=== PATIENT | male | born 1955 | race Caucasian/White ===

== ENCOUNTER 2016-07-17 00:05 | Inpatient (IN) | payer OTHER ==
[~2016-07-17] VITALS: Ht 170.2 cm; Wt 90.7 kg
[~2016-07-17 00:05] MED LIST: ASPIRIN CHILDRE81 MG PO; COLCHICINE0.6 MG PO; FENOFIBRATE134 MG PO; GOOD SENSE IBU200 MG PO; IBUPROFEN800 MG PO; JANUMET 1000 MG1 TAB PO; JANUVIA 50MG50 MG PO; LANTUS100 U/ML SC; LEVEMIR 10100 UNITS/ SC; LOSARTAN POTAS100 MG PO; MOTRIN 600 MG600 MG PO; NOVOLOG 10300 UNITS/ SC; NOVOLOG MI300 UNITS/ SC; NOVOLOG100 U/ML SC; OMEGA-31000 MG PO; PRILOSEC 20MG C20 MG PO; TRICOR 145 MG145 MG PO
--- NOTE | 2016-07-17 00:16 | NUR ---
JAYMIE GAINES AT BEDSIDE FOR EVAL.
--- NOTE | 2016-07-17 00:16 | NUR ---
PT BIBA TO ROOM 8. PER PT SON PT WAS "BREATHING FUNNY", PT WAS FOUND BY EMS PALE, WEAK, AND DIAPHORETIC. PT SON STATED HE TRIED TO WAKE PT UP BUT SON WAS HAVING TROUBLE WAKING UP PT, PT WOKE UP CONFUSED. PER EMS BG = 220.
--- NOTE | 2016-07-17 00:21 | ED DYSPNEA/ASTHMA COMPLAINT ---
History of Present Illness General Chief Complaint: General Adult Stated Complaint: GENERAL MALIASE Source: patient, family, old records, EMS Exam Limitations: no limitations Vital Signs & Intake/Output Vital Signs & Intake/Output Vital Signs Date Time Temp Pulse Resp B/P Pulse O2 O2 Flow FiO2 Ox Delivery Rate 07/17 0642 94 Room Air 07/17 0514 97.2 74 18 138/77 97 Room Air 07/17 0247 97.4 75 18 144/83 97 Room Air 07/17 0034 Room Air 07/17 003 97.8 76 20 158/90 95 Room Air Allergies Coded Allergies: NO KNOWN ALLERGIES (04/04/12) Reconcile Medications Aspirin (Children's Aspirin) 81 MG CTB 81 MG PO DAILY HEART Atorvastatin Calcium 10 MG TABLET 10 MG PO DAILY CHOLESTEROL (Reported) Canagliflozin (Invokana) 100 MG TABLET 100 MG PO DAILY DIABETES (Reported) Colchicine 0.6 MG TAB 600 MCG PO BID HEART TAKE ONE PILL BY MOUTH TWICE A DAY FOR ONE MONTH, THEN STOP Fenofibrate (Tricor 145 MG) 145 MG TABLET 1 TAB PO DAILY CHOLESTEROL ( Reported) Fenofibrate Nanocrystallized (Fenofibrate) 145 MG TABLET 145 MG PO DAILY CHOLESTEROL (Reported) Ibuprofen (Motrin 600 MG Tab) 600 MG TAB 1 TAB PO TID HEART with food Ibuprofen 200 MG TAB 2 TAB PO TID HEART TAKE TWO TABS THREE TIMES A DAY FOR TWO WEEKS FROM OCTOBER 02 - Ibuprofen 200 MG TAB 1 TAB PO TID HEART Insulin Aspart, Recombinant (Novolog) 100 U/ML FRED 0 UNITS SC TIDAC/HS DIABETES IF FINGERSTICK BEFORE MEALS INJECT SC AT BEDTIME 80-120 7 UNITS 0 121-150 8 UNITS 0 151-200 10 UNITS 0 201-250 12 UNITS 2 UNITS 251-300 14 UNITS 3 UNITS 301-350 16 UNITS 4 UNITS 351-400 18 UNITS 5 UNITS >400 20 UNITS 6 UNITS >[address] CÁRDENAS Insulin Detemir (Levemir Flextouch) 100 UNIT/ML (3 ML) INSULN.PEN 100 ML SC DAILY DIABETES (Reported) Insulin Detemir (Levemir) 100 UNITS/ML FRED 30 UNITS SC 1700 DIABETES INJECT 30 UNITS SC EVERY NIGHT Linagliptin/Metformin HCl (Jentadueto 2.5 MG-1000 MG Tab) 2.5 MG-1,000 MG TABLET 2.5 MG PO DAILY DIABETES (Reported) Losartan Potassium 100 MG TABLET 1 TAB PO DAILY HYPERTENSION (Reported) Reason to Stop at ADM: HYPOTENSION Losartan Potassium 25 MG TABLET 25 MG PO DAILY HTN (Reported) OMEGA-3 FATTY ACIDS/FISH OIL ([place] 3 1,000 MG Softgel) 300 MG-1,000 MG CAPSULE 1 TAB PO DAILY CHOLESTEROL (Reported) Omeprazole (Prilosec) 20 MG CAP 40 MG PO DAILY AC HEARTBURN TAKE ONE CAPSULE EVERY MORNING HALF HOUR BEFORE BREAKFAST Triage Note: PT BIBA TO ROOM 8. PER PT SON PT WAS "BREATHING FUNNY", PT WAS FOUND BY EMS PALE, WEAK, AND DIAPHORETIC. PT SON STATED HE TRIED TO WAKE PT UP BUT SON WAS HAVING TROUBLE WAKING UP PT, PT WOKE UP CONFUSED. PER EMS BG = 220. Triage Nurses Notes Reviewed? yes Onset: Abrupt Duration: hour(s):, constant, continues in ED Timing: recent history Severity: moderate, severe Activities at Onset: sleep HPI: 61-year-old male brought into the emergency room after respiratory distress while sleeping. Patient was breathing very heavily and struggling to breathe according to the son and was not arousable. Patient does not recall this episode. Patient reports that he feels weak and sweaty and short of breath but denies any chest pain. Previous history of pericardial effusion. Patient sees a electrical repairer out of [place]. Denies any fever cough congestion headache confusion slurring of words. He is currently not on any anticoagulants and denies any other symptoms and symptoms at this time. (CAROLINA HUDSON) Past History Travel History Traveled to [place] past 21 day No Medical History Any Pertinent Medical History? see below for history Cardiovascular: hypertension Endocrine: diabetes Surgical History Surgical History: laminectomy (l4/l5) Psychosocial History Who do you live with Daughter Services at Home None What is your primary language [place] Tobacco Use: Refused to answer Family History Family History, If Any: MOTHER Relation not specified for: FH: myocardial infarction FHx: stroke Hx Contributory? No (CAROLINA HUDSON) Review of Systems Review of Systems Constitutional: Reports: no symptoms. EENTM: Reports: no symptoms. Respiratory: Reports: see HPI. Cardiovascular: Reports: see HPI. GI: Reports: no symptoms. Genitourinary: Reports: no symptoms. Musculoskeletal: Reports: no symptoms. Skin: Reports: no symptoms. Neurological/Psychological: Reports: no symptoms. Hematologic/Endocrine: Reports: no symptoms. Immunologic/Allergic: Reports: no symptoms. All Other Systems: Reviewed and Negative (CAROLINA HUDSON) Physical Exam Physical Exam General Appearance: well developed/nourished, alert, awake, mild distress Head: atraumatic, normal appearance Eyes: Bilateral: normal appearance, EOMI. Ears, Nose, Throat: normal pharynx, normal ENT inspection, hearing grossly normal Neck: normal inspection Respiratory: normal breath sounds, no respiratory distress Cardiovascular: regular rate/rhythm Gastrointestinal: soft Extremities: normal inspection Neurologic/Psych: no motor/sensory deficits, awake, alert, oriented x 3, normal mood/affect, manager trust II-XII nml as tested Skin: diaphoresis Core Measures ACS in differential dx? Yes Severe Sepsis Present: No Septic Shock Present: No (CAROLINA HUDSON) Progress Differential Diagnosis: asthma, AMI, bronchitis, costochondritis, CHF, COPD, musculoskeletal pain, pericarditis, pulmonary embolism, pneumonia, pneumothorax, rib fracture, unstable angina Plan of Care: Orders Procedure Date/time Status Heart Healthy Diet 07/17 B Active TROPONIN LEVEL 07/17 1200 Active EKG 07/17 1200 Active TROPONIN LEVEL 07/17 0600 Active CBC WITHOUT DIFFERENTIAL 07/17 0600 Active BASIC ELECTROLYTES PLUS BUN&CR 07/17 0600 Active EKG 07/17 0600 Active Vital Signs 07/17 0539 Active Teach/Educate 07/17 0539 Active Pain Treatment and Response 07/17 0539 Active Nutritional Intake, Monitor 07/17 0539 Active Isolation 07/17 0539 Active Patient Care Conference 07/17 0539 Active Activity/Ambulation 07/17 0539 Active Change service to 07/17 0525 Active Admit to inpatient 07/17 0511 Active Code Status 07/17 0511 Active Lab Add-on Test 07/17 0506 Active ECHOCARDIOGRAM 07/17 0456 Active TRC EVALUATION (GEN) 07/17 0452 Active Pathway - chart 07/17 0452 Active House Staff 07/17 0452 Active Patient Data 07/17 0452 Active Code Status 07/17 0452 Complete EKG 07/17 0437 Active Patient Data 07/17 0407 Active Intake & Output 07/17 0124 Active URINALYSIS 07/17 0116 Complete D-DIMER 07/17 0030 Complete Telemetry/Residential Sales Rep 07/17 0027 Active TROPONIN LEVEL 03/19 0027 Complete COMPREHENSIVE METABOLIC PANEL 07/17 26 Complete CBC WITHOUT DIFFERENTIAL 07/17 26 Complete B-TYPE NATRIURETIC PEP (BNP) 07/17 26 Complete EKG 07/17 20 Active Lab Add-on Test 07/17 UNK Active VTE Mechanical Prophylaxis 07/17 UNK Active Telemetry/Residential Sales Rep 07/17 UNK Active FingerStick- Glucose 07/17 UNK Active Current Medications Sig/Bibi Start time Last Medication Dose Stop Time Status Admin Atorvastatin Calcium 10 MG 1700 07/17 1700 AC (Lipitor) Insulin Detemir 30 UNITS 1700 07/17 1700 AC (Levemir) Aspirin 81 MG DAILY 07/17 1000 AC (Aspirin) Colchicine 600 MCG BID 07/17 1000 CAN (Colchicine 600MCG Tab) Enoxaparin Sodium 40 MG DAILY 07/17 1000 AC (Lovenox) Fenofibrate 145 MG DAILY 07/17 1000 AC (Tricor) Losartan Potassium 100 MG DAILY 07/17 1000 AC (Cozaar) Insulin Aspart 0 TIDAC 07/17 0800 AC (NovoLOG) Acetaminophen 650 MG Q6P PRN 07/17 0500 AC (Tylenol) Laboratory Tests 07/17/16 0121: Urine Color YEL, Urine Clarity CLEAR, Urine pH 7.0, Ur Specific [place] 1.015, Urine Protein NEG, Urine Ketones NEG, Urine Nitrite NEG, Urine Bilirubin NEG, Urine Urobilinogen 0.2, Ur Leukocyte Esterase NEG, Ur Microscopic EXAM NOT REQUIRED, Urine Hemoglobin NEG, Urine Glucose >=1000 H 07/17/16 0030: Anion Gap 10, Estimated GFR > 60, BUN/Creatinine Ratio 25.6 H, Glucose 179 H, Calcium 9.6, Total Bilirubin 0.7, AST 51, ALT 83 H, Alkaline Phosphatase 87, Troponin I < 0.01, Lnw-Q-Kfkuxqpgavc Pept 75.3, Total Protein 7.0, Albumin 4.2, Globulin 2.8, Albumin/Globulin Ratio 1.5, D-Dimer 434 H, CBC w Diff NO MAN DIFF REQ, RBC 5.08, MCV 86.2, MCH 30.1, RDW 13.4, MPV 8.6, Gran % 43.6, Lymphocytes % 45.9, Monocytes % 8.1, Eosinophils % 2.1, Basophils % 0.3, Absolute Granulocytes 2.9, Absolute Lymphocytes 3.0, Absolute Monocytes 0.5, Absolute Eosinophils 0.1, Absolute Basophils 0, PUBS MCHC 35.0 Diagnostic Imaging: Viewed by Me: Radiology Read. Discussed w/RAD: Radiology Read. Initial ED EKG: normal intervals, normal p-waves, normal sinus rhythm, rate (85) , LBBB, nonspecific ST T wave chg Prior EKG: unchanged Hand-Off Endorsed To: LULÚ COX DO ([facility]) Endorsed Time: 101 Pending: labs, Xray (CAROLINA HUDSON) Departure Departure Disposition: STILL A PATIENT Condition: Stable Clinical Impression Primary Impression: Acute electrocardiogram changes Secondary Impressions: Dyspnea Referrals: DAVID QUINTANA,SUNDAY Pineda (PCP/Family) Departure Forms: Customer Survey General Discharge Information (CAROLINA HUDSON) Departure Comments 07/17/16 7 am I've seen and personally examined the patient and I agree with the PAs evaluation. He is a 61-year-old male who woke up with diaphoresis. He is also short of breath. According to the son he's had similar episodes in the past and the workups have been unremarkable. He does have a history of pericarditis according to the family. His labs were unremarkable. He is essentially asymptomatic now. His EKG shows a new bundle branch block. EKG was reviewed with the on-call electrical repairer Dr. Patel who is in agreement with the plan. The patient will be admitted to the telemetry service for further evaluation. Inpatient echocardiogram and consider CTA to exclude pulmonary embolism. Admission Note Spoke With: MARÍA QUINTANA PhD,RENATA Manda Documentation of Exam: Documentation of any treatments & extenuating circumstances including Concerns Regarding Discharge (functional status, medication knowledge or non-compliance, living conditions, etc.) that warrant an admission rather than observation: [The patient needs admission for serial troponins, telemetry monitoring, cardiology consultation] (LULÚ COX DO) Critical Care Note Critical Care Note Critical Care Time: non-applicable (CAROLINA HUDSON)
--- NOTE | 2016-07-17 00:33 | NUR ---
LABS SENT (1 BLUE,1SST,1GRAY,1LAV)
[2016-07-17 00:48] LABS: ABSOLUTE BASOPHIL COUNT 0 /CUMM (0.0-0.2); ABSOLUTE EOSINOPHIL COUNT 0.1 /CUMM (0.0-0.7); ABSOLUTE GRANULOCYTE CT 2.9 /CUMM (1.4-6.5); ABSOLUTE MONOCYTE COUNT 0.5 /CUMM (0.10-0.60); BASOPHIL % 0.3 % (0.0-2.0); EOSINOPHIL % 2.1 % (0-5); GRANULOCYTE % 43.6 % (42.2-75.2); HEMATOCRIT 43.8 % (42-52); MEAN CORPUSCULAR HGB 30.1 PG (27.0-31.0); MEAN CORPUSCULAR VOLUME 86.2 FL (80.0-94.0); MEAN PLATELET VOLUME 8.6 FL (7.4-10.4); PLATELET COUNT 170 /CUMM (130-400); RBC DISTRIBUTION WIDTH 13.4 % (11.5-14.5); RED BLOOD CELL CT 5.08 /CUMM (4.70-6.10); WHITE BLOOD CELL COUNT 6.6 /CUMM (4.8-10.8)
[2016-07-17] MEDS ORDERED: INVOKANA100 M1 PO (00:56)
[2016-07-17] MEDS ORDERED: LEVEMIR FL100 UNIT/1 SC (00:57)
[2016-07-17] MEDS ORDERED: JENTADUETO 2.51 EAC2 PO (00:57)
[2016-07-17] MEDS ORDERED: ATORVASTATIN CA10 M1 PO (00:57)
[2016-07-17] MEDS ORDERED: LOSARTAN POTASS25 M1 PO (00:58)
[2016-07-17] MEDS ORDERED: FENOFIBRATE145 M1 PO (00:58)
--- NOTE | 2016-07-17 01:24 | NUR ---
URINE TRIO SENT TO LAB
--- NOTE | 2016-07-17 01:31 | RADIOLOGY REPORT ---
EXAMINATION: XR PORTABLE CHEST CLINICAL INFORMATION: Dyspnea. COMPARISON: None. TECHNIQUE: Portable AP view of the chest was obtained. 1:07 AM FINDINGS: Lung volume low. Mild central vascular prominence accentuated by low inspiratory effort. No focal consolidation. No large pleural effusion. IMPRESSION: Low lung volume with mild central vascular prominence accentuated by the low inspiratory effort.
--- NOTE | 2016-07-17 02:27 | NUR ---
PT DAUGHTER LEFT NUMBER [phone] (SUNDAY) TO CALL.
--- NOTE | 2016-07-17 02:31 | NUR ---
PT SON NUMBER [phone]
--- NOTE | 2016-07-17 02:46 | NUR ---
PT NSR ON MONITOR AT 79 HR. 02 SAT 97 ON RA. DENIES COMPLAINTS AT THIS TIME. AWAITING ADMISSION.
--- NOTE | 2016-07-17 03:37 | NUR ---
PT SLEEPING WITH REGULAR RR AT THIS TIME. NSR (HR 69) ON MONITOR. NO ACUTE DISTRESS NOTED. PT CONTINUES TO AWAIT ADMISSION.
--- NOTE | 2016-07-17 04:21 | NUR ---
HOUSE STAFF AT BEDSIDE
--- NOTE | 2016-07-17 04:59 | NUR ---
REPEAT EKG DONE AND SHOWN TO . HOUSE STAFF PAGED TO NOTIFY WELL.
--- NOTE | 2016-07-17 05:10 | History & Physical ---
See Addendum BRIAN QUINTANAVIOLA 07/17/16 0509: General Information and HPI MD Statement: I have seen and personally examined ZULEYMA GONZALEZ and documented this H&P. The patient is a 61 year old M who presented with a patient stated chief complaint of respiratory distress. Source of Information: patient, old records Exam Limitations: language barrier History of Present Illness: Mr. Gonzalez is a pleasant 61 year old [place]ian-speaking gentleman with PMH type 2 diabetes mellitus, HTN, DLD and pericarditis in 2013 who presented to the emergency room with chief complaint of respiratory distress. History is limited secondary to language barrier and family not being present at time of interview. From the history obtained, it is noted that patient was sleeping and his family members noted he suddenly gasped and became short of breath around 1130 this evening. Patient is unaware of these events but family members noted difficulty in awakening the patient during this episode. Patient does endorse this shortness of breath that has since resolved and mentions there was concomitant dizziness and diaphoresis. He reports this shortness of breath was unlike the episode of pericarditis he experienced in 2013. Currently, patient is completely asymptomatic without dizziness, diaphoresis, chest pain, palpitations, shortness of breath, nausea, vomiting or weakness. Social history is negative for illicit drug use. He is an active smoker and occasionally drinks beer. He performs all of his ADLs and IADLs appropriately. He is currently employed. Allergies/Medications Allergies: Coded Allergies: NO KNOWN ALLERGIES (04/04/12) Home Med list Aspirin (Children's Aspirin) 81 MG CTB 81 MG PO DAILY HEART Atorvastatin Calcium 10 MG TABLET 10 MG PO DAILY CHOLESTEROL (Reported) Canagliflozin (Invokana) 100 MG TABLET 100 MG PO DAILY DIABETES (Reported) Colchicine 0.6 MG TAB 600 MCG PO BID HEART TAKE ONE PILL BY MOUTH TWICE A DAY FOR ONE MONTH, THEN STOP Fenofibrate (Tricor 145 MG) 145 MG TABLET 1 TAB PO DAILY CHOLESTEROL ( Reported) Fenofibrate Nanocrystallized (Fenofibrate) 145 MG TABLET 145 MG PO DAILY CHOLESTEROL (Reported) Ibuprofen (Motrin 600 MG Tab) 600 MG TAB 1 TAB PO TID HEART with food Ibuprofen 200 MG TAB 2 TAB PO TID HEART TAKE TWO TABS THREE TIMES A DAY FOR TWO WEEKS FROM OCTOBER 02 - Ibuprofen 200 MG TAB 1 TAB PO TID HEART Insulin Aspart, Recombinant (Novolog) 100 U/ML FRED 0 UNITS SC TIDAC/HS DIABETES IF FINGERSTICK BEFORE MEALS INJECT SC AT BEDTIME 80-120 7 UNITS 0 121-150 8 UNITS 0 151-200 10 UNITS 0 201-250 12 UNITS 2 UNITS 251-300 14 UNITS 3 UNITS 301-350 16 UNITS 4 UNITS 351-400 18 UNITS 5 UNITS >400 20 UNITS 6 UNITS >[address] CÁRDENAS Insulin Detemir (Levemir Flextouch) 100 UNIT/ML (3 ML) INSULN.PEN 100 ML SC DAILY DIABETES (Reported) Insulin Detemir (Levemir) 100 UNITS/ML FRED 30 UNITS SC 1700 DIABETES INJECT 30 UNITS SC EVERY NIGHT Linagliptin/Metformin HCl (Jentadueto 2.5 MG-1000 MG Tab) 2.5 MG-1,000 MG TABLET 2.5 MG PO DAILY DIABETES (Reported) Losartan Potassium 100 MG TABLET 1 TAB PO DAILY HYPERTENSION (Reported) Reason to Stop at ADM: HYPOTENSION Losartan Potassium 25 MG TABLET 25 MG PO DAILY HTN (Reported) OMEGA-3 FATTY ACIDS/FISH OIL ([place] 3 1,000 MG Softgel) 300 MG-1,000 MG CAPSULE 1 TAB PO DAILY CHOLESTEROL (Reported) Omeprazole (Prilosec) 20 MG CAP 40 MG PO DAILY AC HEARTBURN TAKE ONE CAPSULE EVERY MORNING HALF HOUR BEFORE BREAKFAST Compliance With Home Meds: UNKNOWN Past History Travel History Traveled to [place] past 21 day No Medical History Cardiovascular: hypertension, hyperlipidemia, Pericarditis 2013 Endocrine: diabetes Surgical History Surgical History: laminectomy (l4/l5) Past Family/Social History Family History Relations & Conditions if any MOTHER Relation not specified for: FH: myocardial infarction FHx: stroke Psychosocial History Where do you live? Home Who Do You Live With? spouse Services at Home: None Primary Language: [place] Smoking Status: Current Everyday Smoker ETOH Use: occasional use Illicit Drug Use: denies illicit drug use Living Will? no Functional Ability ADLs Independent: dressing, eating, toileting, bathing. Ambulation: independent IADLs Independent: shopping, housework, finances, food prep, telephone, transportation , medication admin. Sexual History Sexually Active Yes Review of Systems Review of Systems Constitutional: Reports: diaphoresis (During the episode of SOB). Denies: chills, fever, malaise. EENTM: Denies: visual changes, hearing changes, nasal congestion, throat pain. Cardiovascular: Denies: chest pain, palpitations, syncope. Respiratory: Reports: short of breath (Since resolved). Denies: cough, sputum production, wheezing. GI: Denies: abdominal pain, nausea, vomiting. Genitourinary: Denies: dysuria, hematuria. Musculoskeletal: Denies: back pain. Skin: Denies: lesions, rash. Neurological/Psychological: Denies: confusion, headache, tingling. Hematologic/Endocrine: Denies: bruising, bleeding. Immunologic/Allergic: Denies: splenectomy. All Other Systems: Reviewed and Negative Exam & Diagnostic Data Last 24 Hrs of Vital Signs/I&O Vital Signs Date Time Temp Pulse Resp B/P Pulse O2 O2 Flow FiO2 Ox Delivery Rate 07/17 0514 97.2 74 18 138/77 97 Room Air 07/17 0247 97.4 75 18 144/83 97 Room Air 07/17 0034 Room Air 07/17 0034 97.8 76 20 158/90 95 Room Air Intake & Output 07/17 0800 07/17 0000 07/16 1600 Intake Total Output Total 1000 Balance -1000 Output, Urine 1000 Patient 200 lb Weight Physical Exam General Appearance Alert, Oriented X3, Cooperative, No Acute Distress Skin No Rashes, No Breakdown, No Significant Lesion HEENT Atraumatic, PERRLA, EOMI, Mucous Membr. moist/pink Neck Supple, No JVD Lymphatic Cervical nl Cardiovascular Regular Rate, Normal S1, Normal S2 Lungs Clear to Auscultation, Normal Air Movement Abdomen Normal Bowel Sounds, Soft, No Tenderness, Obese. Neurological Normal Speech, Strength at 5/5 X4 Ext, Normal Tone Extremities No Clubbing, No Cyanosis, No Edema, No Tenderness/Swelling Last 24 Hrs of Labs/Ryder: Laboratory Tests 07/17/16 0121: Urine Color YEL, Urine Clarity CLEAR, Urine pH 7.0, Ur Specific [place] 1.015, Urine Protein NEG, Urine Ketones NEG, Urine Nitrite NEG, Urine Bilirubin NEG, Urine Urobilinogen 0.2, Ur Leukocyte Esterase NEG, Ur Microscopic EXAM NOT REQUIRED, Urine Hemoglobin NEG, Urine Glucose >=1000 H 07/17/16 0030: Anion Gap 10, Estimated GFR > 60, BUN/Creatinine Ratio 25.6 H, Glucose 179 H, Calcium 9.6, Total Bilirubin 0.7, AST 51, ALT 83 H, Alkaline Phosphatase 87, Troponin I < 0.01, Yzp-D-Llgdvakcngd Pept 75.3, Total Protein 7.0, Albumin 4.2, Globulin 2.8, Albumin/Globulin Ratio 1.5, CBC w Diff NO MAN DIFF REQ, RBC 5.08, MCV 86.2, MCH 30.1, RDW 13.4, MPV 8.6, Gran % 43.6, Lymphocytes % 45.9, Monocytes % 8.1, Eosinophils % 2.1, Basophils % 0.3, Absolute Granulocytes 2.9, Absolute Lymphocytes 3.0, Absolute Monocytes 0.5, Absolute Eosinophils 0.1, Absolute Basophils 0, PUBS MCHC 35.0 Diagnostic Data EKG Results EKG changes noted, initially thought to be secondary to lead misplacement. CXR Results IMPRESSION: Low lung volume with mild central vascular prominence accentuated by the low inspiratory effort. Assessment/Plan Assessment: Mr. Gonzalez is a pleasant 61 year old [place]ian-speaking male with PMH HTN, DLD and type 2 diabetes mellitus who presents to the [facility] ED with chief complaint of dyspnea. Patient was sleeping earlier this evening and experienced sudden onset acute dyspnea. The dyspnea resolved quickly and was associated with dizziness and diaphoresis. There was no reported chest pain, palpitations, syncope or other concerning symptoms. In the ED: Vital signs showed T T 97.4, HR 75, RR 18, BP 144/83 and O2 saturation of 97% on room air. CBC drawn was unremarkable. BEP showed Na 134, K 3.9, Cl 97, BUN 23, cre 0.9, Glu 179, ALT 83, trop <0.01 and proBNP 75.3. UA showed urine glucose >1000. EKG done in the ED was changed from prior and repeat EKG showed similar findings (Dr. Patel aware). CXR showed low lung volume with mild central vascular prominence accentuated by the low inspiratory effort. Patient is admitted to the telemetry floor and the following is the management: 1. Acute onset shortness of breath * Unknown etiology, differential includes but not limited to CHF vs. NC vs. arrythmia vs. PE * Continuous telemetry monitoring for arrythmia * ProBNP WNL, DDimer Pending, troponin <0.01 * CXR shows no identifiable cause of shortness of breath, no PNA, no effusion * Trend troponin/EKG at 6 am, 12 pm * Echocardiogram ordered, f/u results * Follow up cardio recommendations 2. HTN, HLD * Atorvastatin 10 mg PO daily, fenofibrate 145 mg PO daily * ASA 81 mg PO daily * Losartan 100 mg PO daily 3. Diabetes mellitus * Accuchecks TIDAC * Novolog sliding scale with 30 U SC levemir at bedtime FULL CODE DVTP: SC Lovenox Heart healthy diet Briana pain pathway As Ranked By This Provider Problem List: 1. Dyspnea 2. Acute electrocardiogram changes 3. Hyperlipidemia 4. HTN (hypertension) 5. Diabetes mellitus 6. DVT prophylaxis 7. Full code status Core Measures/Miscellaneous Acute Coronary Syndrome ACS Diagnosis: No Cerebrovascular Accident CVA/TIA Diagnosis: No Congestive Heart Failure CHF Diagnosis: No Venous Thromboembolism VTE Risk Factors: Acute medical illness, Age > 40, Obesity, Smoking No [facility] VTE prophylaxis d/t: No contraindications No VTE Pharm Prophylaxis d/t: No contraindications VTE Diagnosis: No VTE Type: NONE VTE Confirmed by (Test): NONE Severe Sepsis Severe Sepsis Present: No Septic Shock Septic Shock Present: No Miscellaneous Documentation Attending Case Discussed With: JAYE MORALEZ [facility] Primary Care Physician: DAVID QUINTANASUNDAY Patient sees these Specialists Cardiology, Dr. Carlos Nixon Level of Patient Care: [facility]604: Resident Review Statement Resident Statement: examined this patient, discussed with spring internship, agreed with spring internship Other Findings: 61 y/o M with PMH of DM, HTN, HLD and Pericarditis in who presents to the ED with complaints of shortness of breath which woke him up from sleep. Patient is [place] speaking and is not able to give a complete history. Family was not present in the room at the time. He reports feeling weak and sweaty also. He denies any chest pain or palpitations at the time. Currently, the patient feels well, with no shortness of breath, chest pain or chest pressure. He was admitted to this hospital in for Pericarditis and states that his current symptoms are not similar to that episode. He denies any other symptoms. Vitals: Stable EKG: Initial EKG changes were thought to be 2/2 lead misplacement. Repeat EKG shows similar changes. Labs: WNL. Trops <0.01 Problem List: 1) Sudden onset shortness of breath 2/2 possible CHF vs PE vs Possbile Arrhythmia 2) EKG changes, initially thought to be 2/2 lead misplacement, repeat EKG shows similar changes 3) Hypertension 4) Hyperlipidemia 5) Diabetes Plan: - Admit to Telemetry to monitor for arrhythmias. - Trops X3 with EKG - ECHO, Add on ProBNP - No current chest pain, so will hold off on NTG - Fingersticks, Novolog sliding scale and Levemir for DM - Continue other home medications. - DVT PPx: SubQ Lovenox - Pain Pathway: Tylenol PRN - Code Status: Full Code
--- NOTE | 2016-07-17 05:15 | NUR ---
PT MEDICATED WITH ASPIRIN PER EMAR. DENIES ANY CHEST PAIN OR SOB AT THIS TIME. VSS.
--- NOTE | 2016-07-17 05:46 | NUR ---
REPORT GIVEN TO DARWIN ABBASI
--- NOTE | 2016-07-17 07:04 | NUR ---
PT ARRIVED TO FLOOR AT 0610 VIA STRETCHER WITH RN AND MST. PT PLACED ON TELE MONITOR, BP 136/76 HR 72 94% RA 98.2. PT IS A/O X3, PRIMARILY SLOV[place] SPEAKING, NO FAMILY AT BEDSIDE. ORIENTED TO ROOM, CALL SERVIN IN PLACE, BED IN LOWEST POSITION, SIDE RAILS UP. PT HAD NO C/O PAIN, SOB OR DISCOMFORT. PER ER FAMILY WILL BE IN TODAY. WILL CONTINUE TO MONITOR.
[2016-07-17 08:42] VITALS: BP 119/73
[2016-07-17] MEDS ORDERED: LEXAPRO10 M1 PO (10:03)
--- NOTE | 2016-07-17 10:40 | CT SCAN REPORT ---
EXAMINATION: CT ANGIOGRAM OF THE CHEST WITH AND WITHOUT CONTRAST (CT PULMONARY ANGIOGRAM FOR PE) CLINICAL INFORMATION: Reason for Study:
Signs Symptoms: SOB
: ABNORMAL EKG
Presumptive Dx: R/O PULMONARY EMBOLISM
COMPARISON: None TECHNIQUE: Prior to contrast administration, noncontrast localization images were obtained. Subsequently, multidetector volumetric imaging was performed from the thoracic inlet to below the diaphragms following the administration of 80 mL Omnipaque 350 intravenous contrast. No contrast reaction reported Sagittal, coronal, and MIP oblique sagittal reformatted images were obtained on the CT workstation, uploaded to PACS, and reviewed. Total exam dose-length product 496 mGy-cm FINDINGS: QUALITY OF STUDY/CONTRAST BOLUS: Slightly limited especially of the subsegmental pulmonary artery branches PULMONARY ARTERIES: No central or segmental pulmonary emboli. THORACIC AORTA: Remains mildly ectatic with the ascending aorta measuring up to approximately 4.4 cm. No focal aneurysm. LUNG: No focal consolidation, nodules or masses. PLEURA: No pleural effusion or pneumothorax. MEDIASTINUM: Heart size remains moderately enlarged. Ectasia of the thoracic vasculature. No pericardial effusion. No hilar or mediastinal lymphadenopathy. No evidence of septal bowing or right heart strain Mild enlargement of the right lobe of the thyroid gland without significant mass effect. No discrete lesion demonstrated. CHEST WALL/AXILLA: No axillary or internal mammary lymphadenopathy. OSSEOUS STRUCTURES: Stable minor anterior wedge fractures of mid dorsal vertebral body similar to baseline. UPPER ABDOMEN: Nonspecific hepatosplenomegaly partially imaged. Changes of diffuse hepatic steatosis. No reflux of contrast into the hepatic veins to suggest elevated right heart pressures. IMPRESSION: No evidence for any acute or chronic pulmonary embolism. Stable ectasia of the ascending aorta and cardiomegaly. Nonspecific hepatosplenomegaly. Limited assessment of the subsegmental pulmonary arteries as above. VTE: negative
[2016-07-17 12:24] LABS: ABSOLUTE BASOPHIL COUNT 0 /CUMM (0.0-0.2); ABSOLUTE EOSINOPHIL COUNT 0.1 /CUMM (0.0-0.7); ABSOLUTE GRANULOCYTE CT 4.2 /CUMM (1.4-6.5); ABSOLUTE LYMPH COUNT 1.9 /CUMM (1.2-3.4); ABSOLUTE MONOCYTE COUNT 0.6 /CUMM (0.10-0.60); BASOPHIL % 0.2 % (0.0-2.0); EOSINOPHIL % 1.9 % (0-5); GRANULOCYTE % 61.6 % (42.2-75.2); HEMATOCRIT 44.3 % (42-52); MEAN CORPUSCULAR HGB 29.9 PG (27.0-31.0); MEAN CORPUSCULAR HGB CONC 34.5 G/DL (33.0-37.0); MEAN CORPUSCULAR VOLUME 86.7 FL (80.0-94.0); MEAN PLATELET VOLUME 8.5 FL (7.4-10.4); PLATELET COUNT 175 /CUMM (130-400); RBC DISTRIBUTION WIDTH 13.7 % (11.5-14.5); RED BLOOD CELL CT 5.11 /CUMM (4.70-6.10); WHITE BLOOD CELL COUNT 6.8 /CUMM (4.8-10.8)
--- NOTE | 2016-07-17 15:34 | Cons- Cardiology ---
General Information and HPI Consulting Request Date of Consult: 07/17/16 Requested By: MARÍA QUINTANA PhD,RENATA Holman History of Present Illness: This patient is a 61 year old male with history of hypertension, dyslipidemia and diabetes. He also carries a history of pericarditis in 2013. At approximately 11:30 last evening this patient became diaphoretic and short of breath. According to family members the patient was observed to gasp while sleeping and they had trouble awakening the patient. He also felt dizzy without any palpitations. No complaints of chest pain. No fever, chills, nausea, vomiting or orthopnea. In the ER this patient was noted to have a new RBBB in addition to a previously observed LAFB and he had abnormal R wave progression due to a lead misplacement error. The patient also demonstrated a mildly elevated D-dimer but denies any leg discomfort or swelling and he underwent a CT angiogram that was negative for a PE. Allergies/Medications Allergies: Coded Allergies: NO KNOWN ALLERGIES (04/04/12) Home Med List: Aspirin (Children's Aspirin) 81 MG CTB 81 MG PO DAILY HEART Atorvastatin Calcium 10 MG TABLET 10 MG PO DAILY CHOLESTEROL (Reported) Canagliflozin (Invokana) 100 MG TABLET 100 MG PO DAILY DIABETES (Reported) Colchicine 0.6 MG TAB 600 MCG PO BID HEART TAKE ONE PILL BY MOUTH TWICE A DAY FOR ONE MONTH, THEN STOP Escitalopram Oxalate (Lexapro) 10 MG TABLET 10 MG PO D DEPRESSION (Reported) Fenofibrate (Tricor 145 MG) 145 MG TABLET 1 TAB PO DAILY CHOLESTEROL ( Reported) Fenofibrate Nanocrystallized (Fenofibrate) 145 MG TABLET 145 MG PO DAILY CHOLESTEROL (Reported) Ibuprofen (Motrin 600 MG Tab) 600 MG TAB 1 TAB PO TID HEART with food Ibuprofen 200 MG TAB 2 TAB PO TID HEART TAKE TWO TABS THREE TIMES A DAY FOR TWO WEEKS FROM OCTOBER 02 - Ibuprofen 200 MG TAB 1 TAB PO TID HEART Insulin Aspart, Recombinant (Novolog) 100 U/ML FRED 0 UNITS SC TIDAC/HS DIABETES IF FINGERSTICK BEFORE MEALS INJECT SC AT BEDTIME 80-120 7 UNITS 0 121-150 8 UNITS 0 151-200 10 UNITS 0 201-250 12 UNITS 2 UNITS 251-300 14 UNITS 3 UNITS 301-350 16 UNITS 4 UNITS 351-400 18 UNITS 5 UNITS >400 20 UNITS 6 UNITS >[address] CÁRDENAS Insulin Detemir (Levemir Flextouch) 100 UNIT/ML (3 ML) INSULN.PEN 100 ML SC DAILY DIABETES (Reported) Insulin Detemir (Levemir) 100 UNITS/ML FRED 30 UNITS SC 1700 DIABETES INJECT 30 UNITS SC EVERY NIGHT Linagliptin/Metformin HCl (Jentadueto 2.5 MG-1000 MG Tab) 2.5 MG-1,000 MG TABLET 2.5 MG PO DAILY DIABETES (Reported) Losartan Potassium 100 MG TABLET 1 TAB PO DAILY HYPERTENSION (Reported) Reason to Stop at ADM: HYPOTENSION Losartan Potassium 25 MG TABLET 25 MG PO DAILY HTN (Reported) OMEGA-3 FATTY ACIDS/FISH OIL (Radiant 3 1,000 MG Softgel) 300 MG-1,000 MG CAPSULE 1 TAB PO DAILY CHOLESTEROL (Reported) Omeprazole (Prilosec) 20 MG CAP 40 MG PO DAILY AC HEARTBURN TAKE ONE CAPSULE EVERY MORNING HALF HOUR BEFORE BREAKFAST Review of Systems Review of Systems: A twelve point review of systems is unremarkable. Past History Travel History Traveled to [place] past 21 day No Medical History Cardiovascular: hypertension, hyperlipidemia, Pericarditis 2014 Endocrine: diabetes Surgical History Surgical History: laminectomy (l4/l5) Family History Relations & Conditions If Any: MOTHER Relation not specified for: FH: myocardial infarction FHx: stroke Psychosocial History Where Do You Live? Home Who Do You Live With? spouse Services at Home: None Primary Language: Jamaican Smoking Status: Former Smoker (quit 1 1/2 years ago) ETOH Use: occasional use Illicit Drug Use: denies illicit drug use Living Will? no Functional Ability ADLs Independent: dressing, eating, toileting, bathing. Ambulation: independent IADLs Independent: shopping, housework, finances, food prep, telephone, transportation , medication admin. Exam & Diagnostic Data Vital Signs and I&O Vital Signs Date Time Temp Pulse Resp B/P Pulse O2 O2 Flow FiO2 Ox Delivery Rate 07/17 1343 Room Air Room Air 07/17 0930 76 138/80 07/17 0842 97.7 74 16 119/73 93 Room Air 07/17 0800 95 Room Air Room Air 07/17 0642 94 Room Air 07/17 0514 97.2 74 18 138/77 97 Room Air 07/17 0247 97.4 75 18 144/83 97 Room Air 07/17 0034 Room Air 07/17 0034 97.8 76 20 158/90 95 Room Air Intake & Output 07/17 1600 07/17 0800 07/17 0000 07/16 1600 07/16 0800 07/16 0000 Intake Total 480 Output Total 1000 Balance 480 -1000 Intake, Oral 480 Output, Urine 1000 Patient 200 lb Weight Physical Exam: General: WD/ obese male in NAD; alert and oriented x 3 HEENT: NC/AT, PERRL, EOMI, clear oropharnx with mmm Neck: no JVD, no carotid bruit Heart: RRR without murmur or rub Lungs: clear bilaterally Abdomen: soft, obese, NT, +ve bowel sounds Extremities: no edema Diagnostic Data EKG Results sinus rhythm with LAFB and RBBB Assessment/Plan Assessment/Plan * This patient had an episode of what sounds like severe apnea with shortness of breath and decreased responsiveness in the setting of decreased respiration. Although he does have a slightly increased D-dimer I there is no other evidence to support a PE. His new RBBB is indicative of increased RV strain that is likely multifactorial and due to some degree of COPD from year of smoking and also to hypoxia from EBENEZER. There is no current evidence of an exacerbation of COPD or decompensated CHF at this time. We will obtain a pulmonary consult and will plan on an outpatient sleep study. Begin CPAP tonight. Obtain an echocardiogram to assess RV size, function and pressures. We will pursue a stress test as an outpatient due to his risk factors although this is not his active problem. Avoid all sedating medications. * There is no evidence to support active pericarditis. Stop colchicine and ibuprofen. Consult Acknowledgment - Thank you for your consult request.
[2016-07-17 16:28] VITALS: BP 112/70
[2016-07-18 00:32] VITALS: BP 126/80
--- NOTE | 2016-07-18 07:55 | PN- Housestaff ---
Subjective Follow-up For: Difficulty in breathing, probably secondary to sleep apnea New onset right bundle branch block Type 2 diabetes Complaints: patient is a czech speaking male, was c/o mild discomfort in chest Tele-Events Since Last Visit: Normal sinus rhythm, heart rate between 60-74, KS interval 0.22 Subjective: Patient is seen and examined at the bedside. Most of the discussion was done. She was complaining of difficulty breathing and episodes of nodding down. Review of Systems Constitutional: Reports: weakness. Denies: no symptoms. Cardiovascular: Reports: chest pain. Denies: edema, orthopena, palpitations, peripheral edema. Respiratory: Denies: cough, hemoptysis, orthopnea, short of breath, sputum production, stridor. Gastrointestinal: Denies: abdominal pain, bloating, constipation, diarrhea. Genitourinary: Denies: no symptoms. Musculoskeletal: Denies: no symptoms. Skin: Denies: no symptoms. Neurological/Psychological: Denies: no symptoms. Objective Last 24 Hrs of Vital Signs/I&O Vital Signs Date Time Temp Pulse Resp B/P Pulse O2 O2 Flow FiO2 Ox Delivery Rate 07/18 1505 97.9 95 124/76 97 Room Air 07/18 1007 122/76 07/18 0822 97.2 71 20 122/76 93 Room Air 07/18 0550 81 94 07/18 0329 64 93 07/18 0038 75 93 07/18 0032 98.1 80 20 126/80 94 Room Air 07/17 2220 80 93 07/17 2207 95 Room Air Intake & Output 07/18 1600 07/18 0800 07/18 0000 Intake Total 400 720 Output Total 600 Balance -200 720 Intake, Oral 400 720 Output, Urine 600 Physical Exam General Appearance: Alert, Oriented X3, Cooperative, No Acute Distress Cardiovascular: Regular Rate, Normal S1, Normal S2 Lungs: Clear to Auscultation, Normal Air Movement Abdomen: Soft, No Tenderness Neurological: Normal Gait, Normal Speech, Strength at 5/5 X4 Ext Extremities: No Clubbing, No Cyanosis, No Edema Vascular: Normal Pulses Other Physical Findings: Obese Current Medications: Current Medications Sig/Bibi Start time Last Medication Dose Route Stop Time Status Admin Acetaminophen 650 MG Q6P PRN 07/17 0500 AC PO Aspirin 81 MG DAILY 07/17 1000 AC 07/18 PO 1007 Atorvastatin Calcium 10 MG 1700 07/17 1700 AC 07/17 PO 1714 Enoxaparin Sodium 40 MG DAILY 07/17 1000 AC 07/18 SC 1008 Fenofibrate 145 MG DAILY 07/17 1000 AC 07/18 PO 1008 Insulin Aspart 0 TIDAC 07/17 0800 AC 07/18 SC 1302 Insulin Detemir 30 UNITS 1700 07/17 1700 AC 07/17 SC 1713 Losartan Potassium 100 MG DAILY 07/17 1000 AC 07/18 PO 1007 Assessment/Plan Assessment: Patient is a 61-year-old French-speaking gentleman with PMH type 2 diabetes mellitus, hypertension, dyslipidemia, history of pericarditis (2013), presented with chief complaints of dizziness, shortness of breath along with diaphoresis and gasping while sleeping. Vital signs at the time of admission -temperature 97.8, pulse 76, respiratory rate 20, blood pressure 158/90, SPO2 95% on room air EKG at the time of admission showed new RBBB along with LAFB and abnormal R-wave progression. Shortness of breath, probably secondary to sleep apnea- On evaluation. D-dimer was mildly elevated, but CT angiogram was negative for PE , which ruled out pulmonary embolization. Serial troponins and EKG shows no any new changes. Echocardiogram was done which shows normal LVEF >60%. Because of right bundle branch block. He has increased right ventricle strain which can be due to COPD and history of chronic smoking leading to hypoxia and obstructive sleep apnea. We discussed with Daughter she told that patient is having episodes of snoring, obtundation and stopped breathing sometimes in the day. He was previously diagnosed with sleep apnea but never used CPAP.He was already being evaluated for arrhythmia by one month of event monitor, and study was normal. We started patient on CPAP. He felt a little bit improvement when CPAP.We discharged with advise to have sleep study as an outpatient.We continued all home medication as before. Problem List: 1. Dyspnea 2. Acute electrocardiogram changes 3. Hyperlipidemia 4. HTN (hypertension) 5. Diabetes mellitus Pain Ratin Pain Location: Chest pain Pain Goal: Remain pain free Pain Plan: Mild, avoid NSAIDs Tomorrow's Labs & Rationales: none DVT/Prophylaxis: mechanical, pharmacological
--- NOTE | 2016-07-18 07:55 | ECHOCARDIOGRAM REPORT ---
ZULEYMA GONZALEZ Age: 61 : 1955 Gender: M Exam Date: 07/17/2016 08:22 Exam Location: [place] Ht (in): 67 Wt (lb): 200 BSA: 2.10 BP: 138 / 77 Ordering Physician: TERRY SALINAS MD Referring Physician: Jefry Patel MD, PhD Technologist: Richa Sharma [facility] Room Number: [id number] Indications: SHORTNESS OF BREATH Rhythm: Sinus Technical Quality: good FINDINGS Left Ventricle Normal left ventricular size with mild left ventricular hypertrophy. Normal systolic function with no obvious regional wall motion abnormalities. Diastolic filling pattern is consistent with impaired LV relaxatin. The ejection fraction is visually estimated at 60%. Right Ventricle The right ventricle is top normal in size with normal function. Right Atrium The right atrium is normal in size. Left Atrium The left atrium is normal in size. The interatrial septum is intact. Mitral Valve The mitral valve is normal in structure and function. There is mild mitral regurgitation. Aortic Valve Structurally normal aortic valve without significant sclerosis or stenosis. There is mild aortic regurgitation. Tricuspid Valve The tricuspid valve is normal in structure and function. There is mild tricuspid regurgitation. Pulmonary artery systolic pressure is normal. Pulmonic Valve Structurally normal pulmonic valve. There is trace pulmonic regurgitation. Pericardium Normal pericardium without effusion. No pleural effusion. Great Vessels Normal aortic root dimension. The aortic arch and great vessels are well seen and are normal. CONCLUSIONS 1. Normal EF of 60% with impaired LV relaxation. 2. Mild left ventricular hypertrophy. 3. Mild mitral regurgitation. 4. Mild tricuspid regurgitation. 5. Mild aortic regurgitation. 6. Trace pulmonic regurgitation. Jefry Patel M.D. (Electronically Signed) Final Date: 18 July 2016 07:54 MEASUREMENTS (Male / Female) Normal Values 2D ECHO LV Diastolic Diameter PLAX 4.6 cm 4.2 - 5.9 / 3.9 - 5.3 cm LV Systolic Diameter PLAX 3.1 cm 2.1 - 4.0 cm LV Fractional Shortening PLAX 32.6 % 25 - 46 % LV Ejection Fraction 2D Teich 61.0 % IVS Diastolic Thickness 1.4 cm LVPW Diastolic Thickness 1.4 cm LV Relative Wall Thickness 0.6 RV Internal Dim ED PLAX 3.3 cm 1.9 - 3.8 cm LVOT Diameter 2.1 cm Aortic Root Diameter 3.6 cm LA Systolic Diameter LX 3.8 cm 3.0 - 4.0 / 2.7 - 3.8 cm LA Volume 39.0 cm 18 - 58 / 22 - 52 cm Ascending Aorta Diameter 4.0 cm DOPPLER AV Peak Velocity 169.0 cm/s AV Peak Gradient 11.4 mmHg AV Mean Velocity 119.0 cm/s AV Mean Gradient 6.0 mmHg AV Velocity Time Integral 29.4 cm LVOT Peak Velocity 149.0 cm/s LVOT Peak Gradient 8.9 mmHg LVOT Mean Velocity 107.0 cm/s LVOT Mean Gradient 5.0 mmHg LVOT Velocity Time Integral 24.0 cm LVOT Stroke Volume 83.1 cm AV Area Cont Eq vti 2.8 cm AV Area Cont Eq pk 3.1 cm MV Peak Velocity 94.8 cm/s MV Peak Gradient 3.6 mmHg MV Mean Velocity 57.6 cm/s MV Mean Gradient 1.0 mmHg Mitral E Point Velocity 53.8 cm/s Mitral A Point Velocity 86.4 cm/s Mitral E to A Ratio 0.6 MV PHT Velocity 76.8 cm/s MV Deceleration [place] 266.0 cm/s MV Pressure Half Time 86.6 ms MV Area PHT 2.5 cm MV Deceleration Time 317.0 ms TR Peak Velocity 156.0 cm/s TR Peak Gradient 9.7 mmHg Right Atrial Pressure 5.0 mmHg Pulmonary Artery Systolic Pressu 14.7 mmHg Right Ventricular Systolic Press 14.7 mmHg PV Peak Velocity 119.0 cm/s PV Peak Gradient 5.7 mmHg PV Mean Velocity 82.1 cm/s PV Mean Gradient 3.0 mmHg PV Velocity Time Integral 23.9 cm LV E' Lateral Velocity 10.4 cm/s Mitral E to LV E' Lateral Ratio 5.2 LV E' Septal Velocity 6.8 cm/s Mitral E to LV E' Septal Ratio 7.9
[2016-07-18 08:22] VITALS: BP 122/76
--- NOTE | 2016-07-18 13:36 | Cons- Pulmonary ---
General Information and HPI Consulting Request Date of Consult: 07/18/16 Requested By: Med team History of Present Illness: History of Present Illness: This patient is a 61 year old male with history of hypertension, dyslipidemia and diabetes. He also carries a history of pericarditis in 2013. At approximately 11:30 last evening this patient became diaphoretic and short of breath. According to family members the patient was observed to gasp while sleeping and they had trouble awakening the patient. He also felt dizzy without any palpitations. No complaints of chest pain. No fever, chills, nausea, vomiting or orthopnea. In the ER this patient was noted to have a new RBBB in addition to a previously observed LAFB and he had abnormal R wave progression due to a lead misplacement error. The patient also demonstrated a mildly elevated D-dimer but denies any leg discomfort or swelling and he underwent a CT angiogram that was negative for a PE. He does carry a diagnosis sleep apnea but has not been using his CPAP machine patient does work but he says he does not have significant sleepiness. His family does say that he has had history suggestive of significant snoring. CT scan of the chest done was unremarkable Allergies/Medications Allergies: Coded Allergies: NO KNOWN ALLERGIES (04/04/12) Home Med List: Aspirin (Children's Aspirin) 81 MG CTB 81 MG PO DAILY HEART Atorvastatin Calcium 10 MG TABLET 10 MG PO DAILY CHOLESTEROL (Reported) Canagliflozin (Invokana) 100 MG TABLET 100 MG PO DAILY DIABETES (Reported) Colchicine 0.6 MG TAB 600 MCG PO BID HEART TAKE ONE PILL BY MOUTH TWICE A DAY FOR ONE MONTH, THEN STOP Escitalopram Oxalate (Lexapro) 10 MG TABLET 10 MG PO D DEPRESSION (Reported) Fenofibrate (Tricor 145 MG) 145 MG TABLET 1 TAB PO DAILY CHOLESTEROL ( Reported) Fenofibrate Nanocrystallized (Fenofibrate) 145 MG TABLET 145 MG PO DAILY CHOLESTEROL (Reported) Ibuprofen (Motrin 600 MG Tab) 600 MG TAB 1 TAB PO TID HEART with food Ibuprofen 200 MG TAB 2 TAB PO TID HEART TAKE TWO TABS THREE TIMES A DAY FOR TWO WEEKS FROM OCTOBER 02 - Ibuprofen 200 MG TAB 1 TAB PO TID HEART Insulin Aspart, Recombinant (Novolog) 100 U/ML FRED 0 UNITS SC TIDAC/HS DIABETES IF FINGERSTICK BEFORE MEALS INJECT SC AT BEDTIME 80-120 7 UNITS 0 121-150 8 UNITS 0 151-200 10 UNITS 0 201-250 12 UNITS 2 UNITS 251-300 14 UNITS 3 UNITS 301-350 16 UNITS 4 UNITS 351-400 18 UNITS 5 UNITS >400 20 UNITS 6 UNITS >[address] CÁRDENAS Insulin Detemir (Levemir Flextouch) 100 UNIT/ML (3 ML) INSULN.PEN 100 ML SC DAILY DIABETES (Reported) Insulin Detemir (Levemir) 100 UNITS/ML FRED 30 UNITS SC 1700 DIABETES INJECT 30 UNITS SC EVERY NIGHT Linagliptin/Metformin HCl (Jentadueto 2.5 MG-1000 MG Tab) 2.5 MG-1,000 MG TABLET 2.5 MG PO DAILY DIABETES (Reported) Losartan Potassium 100 MG TABLET 1 TAB PO DAILY HYPERTENSION (Reported) Reason to Stop at ADM: HYPOTENSION Losartan Potassium 25 MG TABLET 25 MG PO DAILY HTN (Reported) OMEGA-3 FATTY ACIDS/FISH OIL (Jensen 3 1,000 MG Softgel) 300 MG-1,000 MG CAPSULE 1 TAB PO DAILY CHOLESTEROL (Reported) Omeprazole (Prilosec) 20 MG CAP 40 MG PO DAILY AC HEARTBURN TAKE ONE CAPSULE EVERY MORNING HALF HOUR BEFORE BREAKFAST Review of Systems Review of Systems Constitutional: Reports: see HPI. Past History Travel History Traveled to [place] past 21 day No Medical History Cardiovascular: hypertension, hyperlipidemia, Pericarditis 2014 Endocrine: diabetes Surgical History Surgical History: laminectomy (l4/l5) Family History Relations & Conditions If Any: MOTHER Relation not specified for: FH: myocardial infarction FHx: stroke Psychosocial History Where Do You Live? Home Who Do You Live With? spouse Services at Home: None Primary Language: Chinese Smoking Status: Former Smoker (quit 1 1/2 years ago) ETOH Use: occasional use Illicit Drug Use: denies illicit drug use Living Will? no Functional Ability ADLs Independent: dressing, eating, toileting, bathing. Ambulation: independent IADLs Independent: shopping, housework, finances, food prep, telephone, transportation , medication admin. Exam & Diagnostic Data Last 24 Hrs of Vital Signs/I&O Vital Signs Date Time Temp Pulse Resp B/P Pulse O2 O2 Flow FiO2 Ox Delivery Rate 07/18 1007 122/76 07/18 0822 97.2 71 20 122/76 93 Room Air 07/18 0550 81 94 07/18 0329 64 93 07/18 0038 75 93 07/18 0032 98.1 80 20 126/80 94 Room Air 07/17 2220 80 93 07/17 2207 95 Room Air 07/17 1628 98.7 91 18 112/70 92 Room Air 07/17 1343 Room Air Room Air Intake & Output 07/18 1600 07/18 0800 07/18 0000 Intake Total 720 Output Total Balance 720 Intake, Oral 720 Last 48 Hrs of Labs/Ryder: Laboratory Tests 07/17/16 1131: Troponin I Cancelled 07/17/16 1131: Anion Gap 10, Estimated GFR > 60, BUN/Creatinine Ratio 25.7 H, Troponin I < 0.01, CBC w Diff NO MAN DIFF REQ, RBC 5.11, MCV 86.7, MCH 29.9, RDW 13.7, MPV 8.5, Gran % 61.6, Lymphocytes % 27.8, Monocytes % 8.5, Eosinophils % 1.9, Basophils % 0.2, Absolute Granulocytes 4.2, Absolute Lymphocytes 1.9, Absolute Monocytes 0.6, Absolute Eosinophils 0.1, Absolute Basophils 0, PUBS MCHC 34.5 07/17/16 0600: Hemoglobin A1c 6.9 H 07/17/16 0121: Urine Color YEL, Urine Clarity CLEAR, Urine pH 7.0, Ur Specific [place] 1.015, Urine Protein NEG, Urine Ketones NEG, Urine Nitrite NEG, Urine Bilirubin NEG, Urine Urobilinogen 0.2, Ur Leukocyte Esterase NEG, Ur Microscopic EXAM NOT REQUIRED, Urine Hemoglobin NEG, Urine Glucose >=1000 H 07/17/16 0030: Anion Gap 10, Estimated GFR > 60, BUN/Creatinine Ratio 25.6 H, Glucose 179 H, Calcium 9.6, Total Bilirubin 0.7, AST 51, ALT 83 H, Alkaline Phosphatase 87, Troponin I < 0.01, Ukg-R-Ybogveppikr Pept 75.3, Total Protein 7.0, Albumin 4.2, Globulin 2.8, Albumin/Globulin Ratio 1.5, D-Dimer 434 H, CBC w Diff NO MAN DIFF REQ, RBC 5.08, MCV 86.2, MCH 30.1, RDW 13.4, MPV 8.6, Gran % 43.6, Lymphocytes % 45.9, Monocytes % 8.1, Eosinophils % 2.1, Basophils % 0.3, Absolute Granulocytes 2.9, Absolute Lymphocytes 3.0, Absolute Monocytes 0.5, Absolute Eosinophils 0.1, Absolute Basophils 0, PUBS MCHC 35.0 Assessment/Plan Impression/Plan: SIGNIFICANT DATA CT scan of the chest was unremarkable with no pulmonary embolism stable ectasia of the ascending aorta nonspecific hepatosplenomegaly lung showed no focal consolidation no lymphadenopathy no evidence suggestive of right ventricular strain Echocardiogram done showed normal ejection fraction diastolic heart blood work reviewed does not have any significant baseline hypercarbia C BC within normal limits IMPRESSION/ RECOMMENDATION This is a gentleman with history of hypertension, diastolic heart, dyslipidemia, diabetes, previous pericarditis apparently was noted to have probable sleep apnea and was having difficulty to be awakened by the family members. Since he has been here he has done very well. His issues include Probable obstructive sleep apnea needs outpatient therapy Patient was advised to keep his head of bed elevated till he is followed in my office and we will arrange for a sleep study He seems to be relatively stable no clinical evidence suggestive any of the etiology no clinical evidence suggestive of stroke May very well have obstructive sleep apnea which may have caused his initial symptoms this needs to be investigated and treated patient's family is aware of this. Weight loss therapy advice Patient can be discharged pulmonary canales Consult Acknowledgment - Thank you for your consult request.
[2016-07-18 15:05] VITALS: BP 124/76
--- NOTE | 2016-07-18 15:52 | Patient Discharge Instructions ---
Discharge Instructions General Discharge Information You were seen/treated for: Difficulty in breathing under evaluation Special Instructions: please follow up with pulmonology as an outpatient for sleep apnoea stucy and PFT. Please follow up with your PCP for further management. Please follow up with cardiology for further management . Diet Continue normal diet: No Recommended Diet: Diabetic Activity Full Activity/No Limits: No Activity Self Limited: Yes Acute Coronary Syndrome Inclusion Criteria At DC or during hospital stay patient has or had the following: ACS DIAGNOSIS No Discharge Core Measures Meds if any: Prescribed or Continued at Discharge Meds if any: NOT Prescribed or Continued at Discharge Congestive Heart Failure Inclusion Criteria At DC or during hospital stay patient has or had the following: CHF DIAGNOSIS No Discharge Core Measures Meds if any: Prescribed or Continued at Discharge Meds if any: NOT Prescribed or Continued at Discharge Cerebrovascular accident Inclusion Criteria At DC or during hospital stay patient has or had the following: CVA/TIA Diagnosis No Discharge Core Measures Meds if any: Prescribed or Continued at Discharge Meds if any: NOT Prescribed or Continued at Discharge Venous thromboembolism Inclusion Criteria VTE Diagnosis No VTE Type NONE VTE Confirmed by (Test) NONE Discharge Core Measures - Per Current guidelines, there needs to be overlap - treatment for the first 5 days of Warfarin therapy. - If discharged on Warfarin prior to 5 days of - overlap therapy, the patient will need to be - assessed for post discharge needs including - *Post discharge parental anticoagulation - *Warfarin and/or parental anticoagulation education - *Follow up date to check INR post discharge At least 5 days overlap therapy as Inpatient No Meds if any: Prescribed or Continued at Discharge Warfarin No Note: Overlap Therapy is Warfarin and Anticoagulant Meds if any: NOT Prescribed or Continued at Discharge
--- NOTE | 2016-07-18 16:54 | PN- Cardiology ---
Subjective Subjective: * Symptoms reviewed with patient's daughter. The patient has an atypical chest discomfort that has not resolved. He has had multiple recent stress tests that are reportedly within normal limits. The patient's daughter also reports that her father has been having frequent episodes of passing out without any clear evidence of seizure activity such as a post-ictal state, incontinence or rhythmic motion. The patient has seen a neurologist who has done an EEG which was reportedly normal. The patient also carries a history of obstuctive sleep apnea and according to his daughter he feels sleepy during the day naps quite frequently and is noted to stop breathing. He has not been using a CPAP machine. * Cardiac enzymes are normal. * Normal EF on echo without any significant pericardial effusion. Objective Vital Signs and I&Os Vital Signs Date Time Temp Pulse Resp B/P Pulse O2 O2 Flow FiO2 Ox Delivery Rate 07/18 1505 97.9 95 124/76 97 Room Air 07/18 1007 122/76 07/18 0822 97.2 71 20 122/76 93 Room Air 07/18 0550 81 94 07/18 0329 64 93 07/18 0038 75 93 07/18 0032 98.1 80 20 126/80 94 Room Air 07/17 2220 80 93 07/17 2207 95 Room Air Intake & Output 07/18 1600 07/18 0800 07/18 0000 07/17 1600 07/17 0800 07/17 0000 Intake Total 400 720 480 Output Total 600 1000 Balance -200 720 480 -1000 Intake, Oral 400 720 480 Output, Urine 600 1000 Patient 200 lb Weight Physical Exam: General: WD/ obese male in NAD; alert and oriented x 3 Neck: no JVD, no carotid bruit Heart: RRR without murmur or rub Lungs: clear bilaterally Extremities: no edema Assessment/Plan Assessment/Plan * This patient is noted to snore, stop breathing and naps frequently during the day. I suspect that he is becoming obtunded during the day resulting in poor responsiveness. He was previously diagnosed with sleep apnea but does not use CPAP. Last evening he used CPAP and is doing much better. We will arrange for an outpatient sleep study. * Impaired consciousness: This is likely related to intermittent obtundation as described above. The patient was not noted to have any dysrhythmias of the heart while in the hospital and had a one month event monitor done as an outpatient that was also negative for arrhythmias despite the fact that the patient was symptomatic. His EF is also normal which argues against a substrate for malignant ventricular dysrhythmias. We will see if the CPAP helps. If not, then a loop recorder can be considered. * This patient does have symptoms consistent with ischemia along with some risk factors although his symptoms are not absolutely classic for ischemia. Two stress tests have been negative for ischemia. In consideration of persistent symptoms I recommended a cardiac catheterization for unequivocal diagnosis. The patient ruled out for an NE on this admission and is currently comfortable. We will discharge this patient to home at this time with follow up in the office in one week. Continue aspirin, Atorvastatin and Losartan. Stop Ibuprofen which could be causing a gastritis and which is no longer needed to treat his pericarditis that was diagnosed a couple years ago. Stop colchicine which also does not appear to be helpful. Begin a PPI. Continue telemetry? No
--- NOTE | 2016-07-18 17:23 | Discharge Summary ---
Visit Information Visit Dates Admission Date: 07/17/16 Discharge Date: 07/18/2016 Hospital Course Course Attending Physician: MARÍA QUINTANA PhD,RENATA Holman Primary Care Physician: DAVID QUINTANA,[facility] Course: Patient is a 61-year-old Hungarian-speaking gentleman with PMH type 2 diabetes mellitus, hypertension, dyslipidemia, history of pericarditis (2013), presented with chief complaints of dizziness, shortness of breath along with diaphoresis and gasping while sleeping. Vital signs at the time of admission -temperature 97.8, pulse 76, respiratory rate 20, blood pressure 158/90, SPO2 95% on room air EKG at the time of admission showed new RBBB along with LAFB and abnormal R-wave progression. Shortness of breath, probably secondary to sleep apnea- On evaluation. D-dimer was mildly elevated, but CT angiogram was negative for PE , which ruled out pulmonary embolization. Serial troponins and EKG shows no any new changes. Echocardiogram was done which shows normal LVEF >60%. Because of right bundle branch block. He has increased right ventricle strain which can be due to COPD and history of chronic smoking leading to hypoxia and obstructive sleep apnea. We discussed with Daughter she told that patient is having episodes of snoring, obtundation and stopped breathing sometimes in the day. He was previously diagnosed with sleep apnea but never used CPAP.He was already being evaluated for arrhythmia by one month of event monitor, and study was normal. We started patient on CPAP. He felt a little bit improvement when CPAP.We discharged with advise to have sleep study as an outpatient.We continued all home medication as before. Allergies: Coded Allergies: NO KNOWN ALLERGIES (04/04/12) Disposition Summary Disposition Principal Diagnosis: Difficulty in breathing under evaluation, probably sleep apnea on CPAP Additional Diagnosis: Type 2 diabetes Hypertension Hyperlipidemia Obesity COPD Chronic smoker, quit an year ago History of pericarditis(2013) Discharge Disposition: home or self care Discharge Instructions General Discharge Information Code Status: Full Code Patient's Diet: Diabetic diet Weight loss diet Patient's Activity: As tolerated Follow-Up Instructions/Appts: Please follow-up with your PCP within in a week of discharge. Please follow-up with Dr. Patel within a week of discharge. Please shedule sleep apnea study Please follow-up with the director corporate Avoid smoking Regular exercise Medications at Discharge Discharge Medications: Stop taking the following medications: Escitalopram Oxalate (Lexapro) 10 MG TABLET ORAL Every Day Continue taking these medications: Losartan Potassium (Losartan Potassium) 100 MG TABLET 1 Tablet ORAL DAILY Instructions: Reason to Stop at ADM: HYPOTENSION Fenofibrate (Tricor 145 MG) 145 MG TABLET 1 Tablet ORAL DAILY Comments: Last Taken Date: 09/18/13 Last Taken Time: 1123 OMEGA-3 FATTY ACIDS/FISH OIL ([place] 3 1,000 MG Softgel) 300 MG-1,000 MG CAPSULE 1 Tablet ORAL DAILY Comments: Last Taken Date: 09/18/13 Last Taken Time: 112 Aspirin (Children's Aspirin) 81 MG CTB 81 Milligram ORAL DAILY Qty = 90 Omeprazole (Prilosec) 20 MG CAP 40 Milligram ORAL DAILY BEFORE BREAKFAST Qty = 30 Instructions: TAKE ONE CAPSULE EVERY MORNING HALF HOUR BEFORE BREAKFAST Insulin Detemir (Levemir) 100 UNITS/ML FRED 30 Units Inject into fatty tissue 5 PM Qty = 10 Instructions: INJECT 30 UNITS SC EVERY NIGHT Canagliflozin (Invokana) 100 MG TABLET 100 Milligram ORAL DAILY Qty = 30 Insulin Detemir (Levemir Flextouch) 100 UNIT/ML (3 ML) INSULN.PEN 100 Milliliters Inject into fatty tissue DAILY Qty = 9 Comments: Last Taken:07/18/16 30UNITS GIVEN Time:5PM Atorvastatin Calcium (Atorvastatin Calcium) 10 MG TABLET 10 Milligram ORAL DAILY Qty = 30 Comments: Last Taken:07/18/16 Time:5PM Linagliptin/Metformin HCl (Jentadueto 2.5 MG-1000 MG Tab) 2.5 MG-1,000 MG TABLET 2.5 Milligram ORAL DAILY Qty = 60 Copies To: DAVID QUINTANA,SUNDAY Pineda Attending Review Statement Documenting Attending: MARÍA QUINTANA PhD,RENATA Holman
== END 2016-07-18 18:42 | DRG 156 ==
LOC: ENRESERVTM → ENRESERVDT → ERH 00:05 → 1NO 05:11 → ERHI 05:11 → 1NO 06:14
PROVIDERS: Internal Medicine; Physician Assistant Medical; ADMIT Internal Medicine Interventional Cardiology
PROC: 5A09357 Assistance with Respiratory Ventilation, Less than 24 Consecutive Hours, Continuous Positive Airway Pressure (ICD-10-PCS; principal; 2016-07-17)
DX: G47.33 Obstructive sleep apnea (adult) (pediatric) (principal); I10 Essential (primary) hypertension; E78.5 Hyperlipidemia, unspecified; E11.9 Type 2 diabetes mellitus without complications; E66.9 Obesity, unspecified; Z79.4 Long term (current) use of insulin; I45.10 Unspecified right bundle-branch block; Z87.891 Personal history of nicotine dependence
CPT/HCPCS: 1NP; 36415; 81003; 82436; 93005; 93010; 93306; J1200; J1650; J3490

== ENCOUNTER 2017-11-26 19:11 | Emergency (ER) | payer OTHER ==
[~2017-11-26 19:11] MED LIST changes: +ATORVASTATIN CA10 M1 PO; +FENOFIBRATE145 M1 PO; +INVOKANA100 M1 PO; +JENTADUETO 2.51 EAC2 PO; +LEVEMIR FL100 UNIT/1 SC; +LEXAPRO10 M1 PO; +LOSARTAN POTAS100 M1 PO; -LOSARTAN POTAS100 MG PO; +LOSARTAN POTASS25 M1 PO; -TRICOR 145 MG145 MG PO; +TRICOR145 M1 PO
--- NOTE | 2017-11-26 19:17 | ED CARDIAC/CP/PALPITATIONS ---
History of Present Illness General Chief Complaint: General Adult Stated Complaint: BIBA ?UNRESPONSIVE Source: patient Exam Limitations: no limitations Vital Signs & Intake/Output Vital Signs & Intake/Output Vital Signs Date Time Temp Pulse Resp B/P B/P Pulse O2 O2 Flow FiO2 Mean Ox Delivery Rate 11/27 2051 68 31 142/66 99 BIPAP 11/26 2041 93 BIPAP 11/261 30 30 94/0 93 BIPAP 11/27 2007 32 90 11/26 1932 32 106/00 11/27 1927 60 61/24 11/26 1914 34 158/64 Allergies Coded Allergies: NO KNOWN ALLERGIES (04/04/12) Reconcile Medications Aspirin (Ecotrin*) 81 MG TABLET.DR 1 TAB PO DAILY HEART/BLOOD (Reported) Atorvastatin Calcium (Lipitor) 20 MG TABLET 1 TAB PO DAILY CHOLESTEROL ( Reported) Canagliflozin (Invokana) 100 MG TABLET 100 MG PO QAM DIABETES (Reported) Fenofibrate Nanocrystallized (Tricor) 145 MG TABLET 1 TAB PO DAILY CHOLESTEROL /TRIGLYCERIDES (Reported) Glimepiride (Amaryl) 4 MG TABLET 1 TAB PO QAM DM (Reported) Insulin Detemir (Levemir Flextouch) 100 UNIT/ML (3 ML) INSULN.PEN 32 UNITS SC DAILY DIABETES (Reported) Linagliptin/Metformin HCl (Jentadueto XR 2.5 MG-1,000 MG) 2.5 MG-1,000 MG TAB.BP.24H 2 TAB PO DAILY DM (Reported) Losartan Potassium 100 MG TABLET 1 TAB PO DAILY BP (Reported) Nortriptyline HCl (Pamelor) 10 MG CAPSULE 1-2 CAP PO QPM UNKNOWN (Reported) [place]-3 Acid Ethyl Esters (Lovaza) 1 GRAM CAPSULE 1 CAP PO BID CHOLESTEROL/ TRIGLYCERIDES (Reported) Triage Nurses Notes Reviewed? yes Onset: Abrupt Duration: minute(s): Timing: single episode today HPI: 62 YO gentleman, h/o diabetes, htn, presents after episode of unresponsiveness. Per the medics, his family found him face down, minimally responsive. 911 called immediately. Medics found him in 3rd degree heart block. They bag mask ventilated him briefly. His pulse was 30, with palpable blood pressure. Of note, he reports no chest pain, shortness of breath, headache. Upon arrival, pt awake, arousable, but lethargic. The family shared that he has had episodes of dizziness and fainting over the past several weeks. Past History Travel History Traveled to [place] past 21 day No Medical History Any Pertinent Medical History? see below for history Cardiovascular: hypertension, hyperlipidemia, Pericarditis 2014 Endocrine: diabetes History of MRSA: No History of VRE: No History of CDIFF: No Surgical History Surgical History: laminectomy (l4/l5) Psychosocial History Who do you live with Daughter Services at Home None What is your primary language French Family History Family History, If Any: MOTHER Relation not specified for: FH: myocardial infarction FHx: stroke Hx Contributory? No Review of Systems Review of Systems Constitutional: Reports: no symptoms. EENTM: Reports: no symptoms. Respiratory: Reports: no symptoms. Cardiovascular: Reports: no symptoms. GI: Reports: no symptoms. Genitourinary: Reports: no symptoms. Musculoskeletal: Reports: no symptoms. Skin: Reports: no symptoms. Neurological/Psychological: Reports: no symptoms. Hematologic/Endocrine: Reports: no symptoms. Immunologic/Allergic: Reports: no symptoms. All Other Systems: Reviewed and Negative Comments limited by patient condition Physical Exam Physical Exam General Appearance: well developed/nourished, moderate distress Head: atraumatic, normal appearance Eyes: Bilateral: normal appearance. Ears, Nose, Throat: normal pharynx, normal ENT inspection Neck: normal inspection, supple, full range of motion Respiratory: normal breath sounds, chest non-tender, no respiratory distress, quiet respiration, lungs clear Cardiovascular: bradycardic Gastrointestinal: soft, non-tender, mild distension Back: normal inspection Extremities: normal inspection, 2-3+ femoral pulses, symmetric bilaterally, pieter cardic Neurologic/Psych: no motor/sensory deficits, awake Skin: intact, normal color, warm/dry Core Measures ACS in differential dx? No CVA/TIA Diagnosis No Sepsis Present: No Sepsis Focused Exam Completed? No Progress Differential Diagnosis: 3rd degree heart block vs other Plan of Care: Orders Procedure Date/time Status LACTIC ACID 11/27 2219 Active BIPAP 11/27 1999 Complete Add-on Test (ER Only) 11/26 1957 Active Meeks, Insertion/Removal/Asses 11/26 1952 Active CULTURE,URINE 11/26 1952 Active URINALYSIS 11/26 1952 Complete THYROID STIMULATING HORMONE 11/27 1923 Complete LYME TITRE 11/27 1923 Active LACTIC ACID 11/27 1919 Complete ACETONE 11/27 1919 Complete ARTERIAL BLOOD GAS (GEN) 11/26 1916 Complete TROPONIN LEVEL 11/26 1916 Complete PARTIAL THROMBOPLASTIN TIME 11/26 1916 Complete PROTHROMBIN TIME 11/26 1916 Complete LIPASE 11/26 1916 Complete HEPATIC FUNCTION PANEL 11/26 1916 Complete CBC WITHOUT DIFFERENTIAL 11/26 1916 Complete BASIC METABOLIC PANEL 11/26 1916 Complete AMYLASE 11/26 1916 Complete EKG 11/26 1916 Active Laboratory Tests 11/26/172134: Urine Color YEL, Urine Clarity CLEAR, Urine pH 6.5, Ur Specific Kirby 1.010, Urine Protein NEG, Urine Ketones NEG, Urine Nitrite NEG, Urine Bilirubin NEG, Urine Urobilinogen 0.2, Ur Leukocyte Esterase NEG, Ur Microscopic SEDIMENT EXAMINED, Urine RBC 1-3, Urine WBC 1-3 H, Urine Hemoglobin TRACE-INTACT H, Urine Glucose >=1000 H 11/26/171923: Lactic Acid 7.8 H 11/26/171923: Anion Gap 23 H, Estimated GFR > 60, BUN/Creatinine Ratio 16.0, Glucose 379 H, Calcium 9.0, Total Bilirubin 0.5, Direct Bilirubin 0.4, AST 280 H, ALT 232 H, Alkaline Phosphatase 128 H, Troponin I 0.03, Total Protein 6.7, Albumin 4.1, Amylase 39, Lipase 223, TSH 8.730 H, PT 11.1, INR 1.02, APTT 26, CBC w Diff MAN DIFF ORDERED, RBC 5.41, MCV 84.4, MCH 28.6, MCHC 33.9, RDW 16.4 H, MPV 9.1, Gran % 34.8 L, Lymphocytes % 56.3 H, Monocytes % 7.4, Eosinophils % 1.0, Basophils % 0.5, Absolute Granulocytes 6.2, Segmented Neutrophils 36 L, Band Neutrophils 2, Absolute Lymphocytes 10.1 H, Lymphocytes 53 H, Monocytes 8, Absolute Monocytes 1.3 H, Eosinophils 1, Absolute Eosinophils 0.2, Absolute Basophils 0.1, Platelet Estimate ADEQUATE, Normochromic RBCs VERIFIED, Lyme Disease Antibody Pending, Acetone Level NEGATIVE 11/26/171914: pH 7.31 L, pCO2 26 L, pO2 153 H, HCO3 13 L, ABG O2 Sat (Measured) 97.0, Carboxyhemoglobin 1.0 L, O2 Concentration % 100%, O2 Delivery Method NRB, Phlebotomy Draw Site RIGHT RADIAL Microbiology 11/26 2134 URINE ROUT: Urine Culture - RECD Diagnostic Imaging: Viewed by Me: Radiology Read. Discussed w/RAD: Radiology Read. CXR Impression: PATIENT: ZULEYMA GONZALEZ PRESENT AGE: 62 PATIENT ACCOUNT NO: [id number] : 55 LOCATION: [facility] ORDERING PHYSICIAN: Mitchell Esquivel MD SERVICE DATE: 11/26/17 EXAM TYPE: RAD - XRY- PORTABLE CHEST XRAY EXAMINATION: XR PORTABLE CHEST CLINICAL INFORMATION: Chest pain COMPARISON: June 2016 TECHNIQUE: Portable frontal view of the chest was obtained. FINDINGS: Mild vascular congestion. Cardiac silhouette and mediastinum are widened exaggerated by the AP technique. Questionable mild infiltrate or atelectasis at LEFT lung base. No large effusion or pneumothorax. IMPRESSION: Mild vascular congestion, questionable mild infiltrate at LEFT base. Would recommend repeat chest standing PA and lateral when patient's condition permits. DICTATED BY: Matthew Benítez MD DATE/TIME DICTATED:11/26/172044 BAND SCROLL SAW OPERATOR:TOÑITO DATE/TIME TRANSCRIBED:11/26/172044 CONFIDENTIAL, DO NOT COPY WITHOUT APPROPRIATE AUTHORIZATION. <Electronically signed in Other Vendor System> SIGNED BY: Matthew Benítez MD 11/26/172049 Initial ED EKG: [facility]... 3rd degree heart block. Departure Departure Disposition: OTHER [facility] (ACUTE) Condition: Stable Clinical Impression Primary Impression: Third degree heart block Referrals: Zoraida QUINTANA,Ludmila Pineda (PCP/Family) Departure Forms: Customer Survey General Discharge Information Comments 11/26/17, 7:57PM... discussed with dr. aleman... will continue dopamine 11/26/17, 20:22PM... discussed with dr. levine, [facility], who accepts patient for transfer.... [facility] contacted immediately. discussed at length with family throughout, daughter who is POA signed transfer paperwork. Procedures Central Line Central Line Lumen: triple Central Line Procedure: Yes: bentadine prep?, sterile drapes applied, sterile dressing applied. Central Line Position: femoral (R) Anesthesia: lidocaine 1% CC's of Anesthesia: 3 Complications: none Central Line Post Position: sutured, good blood return Progress: functioning well with dopa gtt. Critical Care Note Critical Care Note Critical Care Time: 75-104 min Comments: pt given 2 rounds of atropine. dopamine gtt, pacer. Pt's abg shows ventilating adequately.... however, pt with occasional episodes of apnea, lasting few seconds... pt placed on bipap, was more comfortable.
[2017-11-26 19:46] LABS: ABSOLUTE BASOPHIL COUNT 0.1 /CUMM (0.0-0.2); ABSOLUTE EOSINOPHIL COUNT 0.2 /CUMM (0.0-0.7); ABSOLUTE GRANULOCYTE CT 6.2 /CUMM (1.4-6.5); ABSOLUTE LYMPH COUNT 10.1 /CUMM (1.2-3.4); ABSOLUTE MONOCYTE COUNT 1.3 /CUMM (0.10-0.60); BASOPHIL % 0.5 % (0.0-2.0); GRANULOCYTE % 34.8 % (42.2-75.2); HEMATOCRIT 45.6 % (42-52); MEAN CORPUSCULAR HGB 28.6 PG (27.0-31.0); MEAN CORPUSCULAR HGB CONC 33.9 G/DL (33.0-37.0); MEAN CORPUSCULAR VOLUME 84.4 FL (80.0-94.0); MEAN PLATELET VOLUME 9.1 FL (7.4-10.4); PLATELET COUNT 280 /CUMM (130-400); RBC DISTRIBUTION WIDTH 16.4 % (11.5-14.5); RED BLOOD CELL CT 5.41 /CUMM (4.70-6.10)
[2017-11-26 19:53] LABS: WHITE BLOOD CELL COUNT 17.9 /CUMM (4.8-10.8)
[2017-11-26] MEDS ORDERED: ASPIRIN EC81 M1 PO (19:56)
[2017-11-26] MEDS ORDERED: AMARYL4 M1 PO (19:57)
[2017-11-26] MEDS ORDERED: LIPITOR20 M2 PO (19:57)
[2017-11-26] MEDS ORDERED: LOVAZA1 G1 PO (19:58)
[2017-11-26] MEDS ORDERED: PAMELOR10 MG PO (19:58)
[2017-11-26] MEDS ORDERED: JENTADUETO XR1 EACH PO (20:00)
[2017-11-26 20:06] LABS: PT 11.1 SEC (9.4-12.5); PTT 26 SEC (25-37)
--- NOTE | 2017-11-26 20:50 | RADIOLOGY REPORT ---
EXAMINATION: XR PORTABLE CHEST CLINICAL INFORMATION: Chest pain COMPARISON: June 2016 TECHNIQUE: Portable frontal view of the chest was obtained. FINDINGS: Mild vascular congestion. Cardiac silhouette and mediastinum are widened exaggerated by the AP technique. Questionable mild infiltrate or atelectasis at LEFT lung base. No large effusion or pneumothorax. IMPRESSION: Mild vascular congestion, questionable mild infiltrate at LEFT base. Would recommend repeat chest standing PA and lateral when patient's condition permits.
[2017-11-26 20:52] VITALS: BP 142/66
--- NOTE | 2017-11-26 21:25 | Event Note ---
Event Note Event Note: Case discussed at length with ER attending (Dr. Martin) and hospitalist (Dr. Montes). Plan is to transfer the patient to [facility] since he is currently HD stable for transfer. Lyme titers should be checked but review of previous records shows some baseline conduction disease and this presentation is more likely a progression of baseline conduction disease. I remain immediately available to assist with management including the ability to place a TVP urgently if clinically required. The patient will have transcutaneous pacer pads in place without interruption until permanent PM is in place. Will also be kept on IV infusion of Dopamine to improve cardiac conduction pattern. Lanre Couch MD [facility]
== END 2017-11-26 21:48 | disposition short-term general hospital (02) ==
LOC: ERH 19:11
PROVIDERS: Pediatrics
DX: I44.2 Atrioventricular block, complete (principal); I10 Essential (primary) hypertension; E11.9 Type 2 diabetes mellitus without complications; Z79.4 Long term (current) use of insulin
CPT/HCPCS: 1288; 1387; 86618; 71045; 81001; 87086; 94799; 96374; 96375; 99291; J1265; J7060